=== PATIENT | female | born 1975 | race Caucasian/White ===

== ENCOUNTER 2021-08-02 13:40 | Emergency (ER) | payer MEDICAID, SELFPAY ==
--- NOTE | 2021-08-02 | ECG_ITS ---
Test Reason : coccaine use Blood Pressure : / mmHG Vent. Rate : 072 BPM Atrial Rate : 072 BPM P-R Int : 134 ms QRS Dur : 072 ms QT Int : 380 ms P-R-T Axes : 007 016 037 degrees QTc Int : 416 ms Normal sinus rhythm Normal ECG No previous ECGs available Referred By: Generic ED Physician Electronically Signed By:POONAM LEAVITT MD
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
[2021-08-02 13:48] VITALS: BP 122/78; PULSE 87; O2SAT 97
[2021-08-02 15:57] VITALS: BP 111/71; PULSE 74; RESP 18; TEMP 36.8; O2SAT 98; BMI 27.4
[2021-08-02 16:17] LABS: MANUAL DIFF FLAG NO
[2021-08-02 16:20] LABS: Basophils Percent Auto 0.3 % (0-2); Eosinophils Absolute Auto 0.1 X10*3/uL (0.0-0.4); Eosinophils Percent Auto 1.7 % (0-4); Hematocrit 41.4 % (37.0-47.0); Hemoglobin 13.1 g/dl (12.0-16.0); Imm Gran Abs Auto 0.02 X10*3/uL (0.00-0.03); Imm Gran Pct Auto 0.3 % (0.0-0.4); Lymphocytes Absolute Auto 2.3 X10*3/uL (1.2-4.9); Lymphocytes Percent Auto 29.8 % (20-40); Mean Corpuscular HGB Conc 31.6 g/dl (31.0-35.0); Mean Corpuscular Hemoglobin 27.8 pg (27.0-33.0); Mean Corpuscular Volume 87.9 fL (80.0-98.0); Mean Platelet Volume 9.7 fL (9.4-12.3); Monocytes Absolute Auto 0.7 X10*3/uL (0.1-1.2); Monocytes Percent Auto 9.2 % (2-11); Neutrophils Absolute Auto 4.6 x10*3/uL (2.0-8.3); Neutrophils Percent Auto 58.7 % (45-73); Platelet Count 370 X10*3/uL (160-400); Red Blood Count 4.71 X10*6/uL (4.20-5.50); Red Cell Distribution Width 12.8 % (11.0-16.0); White Blood Count 7.8 X10*3/uL (4.8-10.8)
[2021-08-02 16:37] LABS: Amphetamine Screen Urine Not Detected (Not Detect); Barbiturates, Urine Not Detected (Not Detect); Benzodiazepines Screen Urine Not Detected (Not Detect); Cannabinoid Screen Urine Not Detected (Not Detect); Cocaine Screen Urine POSITIVE (Not Detect); Fentanyl, urine Not Detected (Not Detect); Opiate Screen Urine Not Detected (Not Detect); Phencyclidine Screen Urine Not Detected (Not Detect)
[2021-08-02 16:38] LABS: COVID-19 Test Negative (Negative)
[2021-08-02 19:17] LABS: Anion Gap 12 (12-20); Blood Urea Nitrogen 10 mg/dL (9-16); Calcium 9.3 mg/dL (8.4-10.2); Carbon Dioxide 24 mmol/L (22-29); Chloride 108 mmol/L (96-108); Creatinine Clr Calc Pharmacy 82.6; Estimated Glomerular Filt Rate > 60; Glucose Random 88 mg/dL (60-115); Potassium 4.5 mmol/L (3.3-5.1); Sodium 139 mmol/L (135-145)
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
[2021-08-02 23:30] VITALS: BP 110/56; PULSE 69; RESP 18; TEMP 36.8; O2SAT 98
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
--- NOTE | 2021-08-03 00:14 | PC.NURSE ---
20G IV placed left AC, pt to CT.
--- NOTE | 2021-08-03 01:10 | PC.NURSE ---
@0107 CALL PLACED TO [facility] PT TX LINE @ RIGO VALENTIN REQUEST FOR A TRAUMA TRANSFER CHERYL ANSWERS, TAKES, PT INFO AND SAYS SHE WILL CALL US BACK SOON
--- NOTE | 2021-08-03 02:21 | PC.NURSE ---
RN-RN report called into [facility].
[2021-08-03 04:06] VITALS: BP 90/52; PULSE 70; RESP 17; TEMP 37.2; O2SAT 96
== END 2021-08-03 05:22 | disposition short-term general hospital (02) ==
PROVIDERS: Emergency Provider Emergency Medicine
DX: J38.4 Edema of larynx (principal); S09.91XA Unspecified injury of ear, initial encounter; S00.81XA Abrasion of other part of head, initial encounter; S10.91XA Abrasion of unspecified part of neck, initial encounter; Y04.2XXA Assault by strike against or bumped into by another person, initial encounter; M54.2 Cervicalgia; F19.10 Other psychoactive substance abuse, uncomplicated; Z20.822 Contact with and (suspected) exposure to COVID-19; Y93.9 Activity, unspecified; Y92.9 Unspecified place or not applicable; Y99.9 Unspecified external cause status
CPT/HCPCS: 36415; 70450; 70491; 80048; 80307; 85025; 87635; 93005; 99285; Q9967